=== PATIENT | female | born 1990 | race Caucasian/White ===

== ENCOUNTER 2018-04-16 00:58 | Outpatient (CLI) | payer MEDICAID ==
[2018-04-16 01:41] LABS: APPEARANCE,URINE SLIGHTLY-CLOUDY; BILIRUBIN,URINE NEGATIVE (NEGATIVE); COLOR,URINE YELLOW; GLUCOSE, URINE NEGATIVE (NEGATIVE); KETONES,URINE NEGATIVE (NEGATIVE); LEUKOCYTE ESTERASE,URINE LARGE (NEGATIVE); NITRITE,URINE NEGATIVE (NEGATIVE); PROTEIN,URINE NEGATIVE (NEGATIVE); URINE SPECIFIC GRAVITY 1.012; UROBILINOGEN,URINE NEGATIVE mg/dL (<2.0)
[2018-04-16 02:02] LABS: URINE AMPHETAMINES SCREEN NEGATIVE
[2018-04-16 02:07] LABS: URINE BARBITURATES SCREEN NEGATIVE; URINE COCAINE SCREEN NEGATIVE; URINE MARIJUANA (THC) SCREEN NEGATIVE; URINE METHADONE SCREEN NEGATIVE; URINE PHENCYCLIDINE SCREEN NEGATIVE
[2018-04-16 02:46] LABS: URINE BENZODIAZEPINES SCREEN UNCONFIRMED POSITIVE
== END 2018-04-16 02:58 | disposition home or self-care (01) ==
LOC: LC 00:58
PROVIDERS: ATTEND Obstetrics & Gynecology
PROC: 4A1HXCZ Monitoring of Products of Conception, Cardiac Rate, External Approach (ICD-10-PCS; principal; 2018-04-16)
DX: O47.1 False labor at or after 37 completed weeks of gestation (principal); O99.333 Smoking (tobacco) complicating pregnancy, third trimester; F17.210 Nicotine dependence, cigarettes, uncomplicated; Z3A.39 39 weeks gestation of pregnancy
CPT/HCPCS: 59025; 81005; 80307; G0480 ×2

== ENCOUNTER 2018-04-17 19:06 | Inpatient (IN) | payer MEDICAID ==
[2018-04-17 19:31] LABS: APPEARANCE,URINE CLOUDY; BILIRUBIN,URINE NEGATIVE (NEGATIVE); COLOR,URINE YELLOW; GLUCOSE, URINE NEGATIVE (NEGATIVE); KETONES,URINE 20 mg/dL (NEGATIVE); LEUKOCYTE ESTERASE,URINE MODERATE (NEGATIVE); NITRITE,URINE NEGATIVE (NEGATIVE); PROTEIN,URINE 30 mg/dL (NEGATIVE); URINE SPECIFIC GRAVITY 1.025
[2018-04-17 19:58] LABS: URINE AMPHETAMINES SCREEN NEGATIVE; URINE BARBITURATES SCREEN NEGATIVE; URINE BENZODIAZEPINES SCREEN NEGATIVE; URINE COCAINE SCREEN NEGATIVE; URINE MARIJUANA (THC) SCREEN NEGATIVE; URINE METHADONE SCREEN NEGATIVE; URINE PHENCYCLIDINE SCREEN NEGATIVE
[2018-04-17] MEDS ORDERED: RINGERS SOLUTION,LACTATED 1,000 ML IV ONE (19:58)
[2018-04-17] MEDS ORDERED: RINGERS SOLUTION,LACTATED 1,000 ML IV PRN (19:58)
[2018-04-17 20:23] LABS: ABSOLUTE BASOPHILS # (AUTO) 0.1 10^3/uL (0.0-0.2); ABSOLUTE LYMPHOCYTES (AUTO) 1.6 10^3/uL (0.5-4.7); ABSOLUTE MONOCYTES (AUTO) 0.4 10^3/uL (0.1-1.4); ABSOLUTE NEUT (AUTO) 6.6 10^3/uL (1.7-8.2); BASOPHILS % (AUTO) 1.2 % (0-2); EOSINOPHILS % (AUTO) 0.3 % (0-6); HEMATOCRIT 36.6 % (36.0-47.0); HEMOGLOBIN 12.6 g/dL (12.0-15.5); LYMPHOCYTES % (AUTO) 18.3 % (13-45); MEAN CORPUSCULAR HEMOGLOBIN 30.7 pg (27.0-33.4); MEAN CORPUSCULAR HGB CONC 34.5 g/dL (32.0-36.0); MEAN CORPUSCULAR VOLUME 89 fl (80-97); MONOCYTES % (AUTO) 4.6 % (3-13); PLATELET COUNT 174 10^3/uL (150-450); RED BLOOD COUNT 4.12 10^6/uL (3.72-5.28); RED CELL DISTRIBUTION WIDTH 14.2 % (11.5-14.0); SEGMENTED NEUTROPHILS % (AUTO) 75.6 % (42-78); TOTAL CELLS COUNTED % (AUTO) 100 %; WHITE BLOOD COUNT 8.8 10^3/uL (4.0-10.5)
[2018-04-17] MEDS ORDERED: EPHEDRINE SULFATE INJ 50 MG/1 ML AMPULE ONE (23:25)
[2018-04-17] MEDS ORDERED: FENTANYL CITRATE INJ/PF 100 MCG/2 ML AMPUL ONE (23:25)
[2018-04-17] MEDS ORDERED: FENTANYL/BUPIVACAINE/NS/PF 300 MCG/150 ML RTUINJ EPI ONE (23:26)
[2018-04-17] MEDS ORDERED: PHENYLEPHRINE HCL INJ/PF 10 MG/1 ML SDV ONE (23:26)
[2018-04-17] MEDS ORDERED: LIDOCAINE 1.5%/EPINEPHRINE INJ-PF 30 ML SDV ONE (23:26)
[2018-04-17] MEDS ORDERED: BUPIVACAINE HCL 0.25 % INJ/PF (2.5 MG/1 ML) 30 ML VIAL ONE (23:26)
--- NOTE | 2018-04-17 23:39 | Admission Physical ---
Datetime Report Generated by CPN: 04/17/2018 23:39 CURRENT ADMISSION Chief Complaint: Uterine Contractions Indication for Induction: Not Applicable Admit Impression : Term, Intrauterine ; Active Labor Admit Plan: Admit to Unit; Initiate Labor Protocol ALLERGIES Medication Allergies: No Medication Allergies: No Known Allergies (04/17/2018) Latex: No Latex Allergies Food Allergies: denies Environmental Allergies: denies OBSTETRICAL HISTORY EDC: 04/17/2018 00:00 : 1 Para: 0 Term: 0 : 0 SAB: 0 IAB: 0 Ectopic: 0 Livin Cesareans: 0 VBACs: 0 Multiple Births: 0 Gestational Diabetes: No Rh Sensitization: No Incompetent Cervix: No ОЛЬГА: No Infertility: No ART Treatment: No Uterine Anomaly: No IUGR: No Hx Previous C/S: No Macrosomia: No Hx Loss/Stillborn: No PIH: No Hx : No Placenta Previa/Abruption: No Depression/PP Depression: No PTL/PROM: No Post Hemorrhage: No Current Procedures: Ultrasound; NST Obstetrical History Comments: g1-current SEE RECORDS Alcohol: No Marijuana : No Previous Treatment: None Marijuana Comments: in past no longer using for several years Cocaine: Yes Previous Treatment: None Cocaine Comments: Recovering cocaine addiction-sober since 2016 Other Illicit Drugs: Yes Illicit Drug Comments: not currently using since 2016- heroin and opiates use via IV and benzos. patient was in medically induced coma for seizures possibly related to drug use Cigarettes: Current Everyday Smoker. 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 Heart Disease: No Hosp/Surgery: Yes Autoimmune Disorder: No Anesthetic Complications: No Kidney Disease: No Abnormal Pap Smear: No Neuro/Epilepsy: Yes Psychiatric Disorders: No Other Medical Diseases: Yes Hepatitis/Liver Disease: Yes Significant Family History: No Varicosities/Phlebitis: No Trauma/Violence : No Thyroid Dysfunction: No Medical History Comments: history of drug usage that led to medically induced coma because of seizures, opiate and heroin usage but has been sober since 2016, hepatitis c not currently on meds DO NOT TELL ANYONE PLEASE INFECTIOUS HISTORY Gonorrhea: No Genital Herpes: No Chlamydia: Yes Tuberculosis: No Syphilis: No Hepatitis: Yes HIV/AIDS Exposure: No Rash or Viral Illness: No HPV: No Infectious History Comments: hepatitis C not on meds, chlamydia in 2017 PHYSICAL EXAM General: Normal HEENT: Normal Neurologic: Normal Thyroid: Normal Heart: Normal Lungs: Normal Breast: Normal Back: Normal Abdomen: Normal Genitourinary Exam: Normal Extremities: Normal DTRs: Normal Pelvic Type: Adequate Vital Signs: Reviewed VAGINAL EXAM Dilatation: 3 Effacement: 90 Station: 0 MEMBRANES Pooling: Negative Membranes: Intact FETUS A EGA: 40.0 Monitoring: External US FHR- Baseline: 150 Variability: Moderate 6-25bpm Accelerations: 15X15 Decelerations: None FHR Category: Category I Estimated Weight (gm): 3500 Presentation: Vertex PLANS FOR LABOR AND DELIVERY Labor and Delivery: None Pain Management: Natural; Medications; Epidural Other Pain Management Plans: open to everything Feeding Preference: Both Benefit of Breast Feed Discussed: Yes Circumcision: Yes INFORMED CONSENT Signature: with User ID: [email or web address]
[2018-04-18] MEDS ORDERED: MISOPROSTOL 0.2 MG TABLET ONE (00:40)
[2018-04-18] MEDS ORDERED: LIDOCAINE 1% INJ-PF (10 MG/ML) 30 ML SDV ONE (00:40)
[2018-04-18] MEDS ORDERED: OXYTOCIN/NORMAL SALINE 20 UNIT/1,000 ML RTUINJ ONE (00:40)
[2018-04-18] MEDS ORDERED: DIPH/PERTUSS(ACELL)/TETANUS VAC/PF 0.5 ML SYR (>=10YO) IM PRN (03:48)
[2018-04-18] MEDS ORDERED: PROMETHAZINE HCL 25 MG SUPP.RECT PR PRN (03:48)
[2018-04-18] MEDS ORDERED: GLYCERIN/WITCH HAZEL LEAF 1 EACH MED..PAD TP PRN (03:48)
[2018-04-18] MEDS ORDERED: BENZOCAINE/MENTHOL AEROSOL SPRAY 56 ML TOP PRN (03:48)
[2018-04-18] MEDS ORDERED: ACETAMINOPHEN 650 MG SUPP.RECT PR PRN (03:48)
[2018-04-18] MEDS ORDERED: NA PHOS,M-B/NA PHOS,DI-BA (ADULT) 133 ML ENEMA PR PRN (03:48)
[2018-04-18] MEDS ORDERED: MAGNESIUM HYDROXIDE SUSP 30 ML UDCUP PO PRN (03:48)
[2018-04-18] MEDS ORDERED: DIBUCAINE 1% OINTMENT 28 GM TP PRN (03:48)
[2018-04-18] MEDS ORDERED: DIPHENHYDRAMINE HCL 25 MG CAPSULE PO PRN (03:48)
[2018-04-18] MEDS ORDERED: PROMETHAZINE HCL INJ 25 MG/1 ML VIAL IV PRN (03:48)
[2018-04-18] MEDS ORDERED: ACETAMINOPHEN WITH CODEINE #3 TABLET PO PRN ×2 (03:48)
[2018-04-18] MEDS ORDERED: OXYTOCIN/NORMAL SALINE 20 UNIT/1,000 ML RTUINJ IV PRN (03:48)
[2018-04-18] MEDS ORDERED: ZOLPIDEM TARTRATE 5 MG TABLET PO PRN (03:48)
[2018-04-18] MEDS ORDERED: PROMETHAZINE HCL 25 MG TABLET PO PRN (03:48)
[2018-04-18] MEDS ORDERED: PSEUDOEPHEDRINE HCL 30 MG TABLET PO PRN (03:48)
[2018-04-18] MEDS ORDERED: MEASLES,MUMPS&RUBELLA VACC/PF 0.5 ML VIAL SUBCUT PRN (03:48)
--- NOTE | 2018-04-18 05:52 | Delivery Summary ---
Del Sum A-C Datetime Report Generated by CPN: 04/18/2018 05:51 DELIVERY PERSONNEL DELIVERY PERSONNEL: [id number] Delivery Doctor:: Stephanie Valdivia MD Labor and Delivery Nurse:: Erin Auguste RNequal opportunity representative Nurse:: Bushra Brito RN Nursery Nurse:: Stephani Valenzuela RN Computer Network Engineer/PET AMBASSADOR: Michael Green, PET AMBASSADOR MATERNAL INFORMATION Delivery Anesthesia: Epidural Medications After Delivery: Pitocin Drip 20 Units/1000ml NSS Estimated Blood Loss (ml): 200 Maternal Complications: None Provider Comments: kiwi applied to 44 mmHg. one pull. no pop off LABOR SUMMARY EDC: 04/17/2018 00:00 No. Babies in Womb: 1 Attempted: No Labor Anesthesia: Epidural LABOR INFORMATION Reason for Induction: Not Applicable Onset of Labor: 04/17/2018 19:46 Complete Dilatation: 04/18/2018 02:49 Oxytocin: N/A Group B Beta Strep: Negative Antibiotics # of Doses: 0 Antibiotics Time of Last Dose: N/A Name of Antibiotic Given: N/A Steroids Given: None Reason Steroids Not Administered: Not Applicable MEMBRANES Membranes Rupture Method: Artificial Rupture of Membranes: 04/18/2018 02:49 Length of Rupture (hr): 0.72 Amniotic Fluid Color: Clear Amniotic Fluid Amount: Scant Amniotic Fluid Odor: Normal STAGES OF LABOR Stage 1 hr: 7 Stage 1 min: 3 Stage 2 hr: 0 Stage 2 min: 43 Stage 3 hr: 0 Stage 3 min: 4 Total Time in Labor hr: 7 Total Time in Labor min: 50 VAGINAL DELIVERY Episiotomy: None Laceration #1: Vaginal Laceration Extension #1: First Degree Laceration Repair: Yes Laceration Repair Note: 2-0 chromic in normal fashion Sponge Count Correct: N/A Sharps Count Correct: Yes CSECTION DELIVERY Primary Indication: N/A Secondary Indication: N/A CSection Incidence: N/A Labor: N/A Elective: N/A CSection Incision: N/A BABY A INFORMATION Delivery Date/Time: 04/18/2018 03:32 Method of Delivery: Vaginal Born in Route : No : N/A Forceps: N/A Vacuum Extraction: Successful Shoulder Dystocia : No ASSISTED DELIVERY BABY A Indication for Assisted Delivery: bradycardia Catheter Prior to Procedure: No Station Vacuum/Forcep Apply: +3 Vacuum Number of Pulls: 1 Vacuum Number of PopOffs: 0 Vacuum Maximum Pressure Obtained: 550 Reduce Pressure btwn Ctx: No Vacuum Triage Clinician: Kiwi Total Time Vacuum Applied: less than 1 minute PRESENTATION/POSITION BABY A Presentation: Cephalic Cephalic Presentation: Vertex Vertex Position: Left Occipital Anterior Breech Presentation: N/A PLACENTA INFORMATION BABY A Placenta Delivery Time : 04/18/2018 03:36 Placenta Method of Delivery: Spontaneous Placenta Status: Delivered SCORES BABY A Heart Rate 1 min: >100 bpm Resp Effort 1 min: Good Cry Reflex Irritability 1 min: Cough or Sneeze or Pulls Away Muscle Tone 1 min: Active Motion Color 1 min: Body [place], Extremities Blue Resuscitation Effort 1 min: Tactile Stimulation SCORE 1 MIN: 9 Heart Rate 5 min: >100 bpm Resp Effort 5 min: Good Cry Reflex Irritability 5 min: Cough or Sneeze or Pulls Away Muscle Tone 5 min: Active Motion Color 5 min: Body [place], Extremities Blue Resuscitation Effort 5 min: Tactile Stimulation SCORE 5 MIN: 9 INFORMATION BABY A Gestational Age at Delivery: 40.1 Gestational Status: Full Term- 39- 40.6 Weeks Outcome : Liveborn Infant Condition : Stable Sex: Male IDENTIFICATION BABY A Infant Verification Date/Time: 04/18/2018 03:44 ID Band Number: [id number] Mother's Name Verified: Yes Infant RN Verifying Infant: SErna Brito, RNC _ EErna Moorek, RN WEIGHT/LENGTH BABY A Birthweight (gm): 2980 Infant Weight (lb): 6 Weight (oz): 9 Length (in): 20.00 Infant Length (cm): 50.80 CORD INFORMATION BABY A No. Cord Vessels: 3 Nuchal Cord : N/A Nuchal Cord- Other: Left Compound hand Cord Blood Taken: Yes-For Storage (Mom's Blood type +) Infant Suction: None ASSESSMENT BABY A Infant Complications: None Physical Findings at Delivery: Molding of the Head Respirations: Appears Normal Skin to Skin: Yes Director Of Student Financial Services/ALS Called : No Transferred To: Remains with Mother BABY B INFORMATION : N/A SIGNATURES Signature: with User ID: [email or web address]
[2018-04-18] MEDS ORDERED: IBUPROFEN 800 MG TABLET ONE (08:00)
--- NOTE | 2018-04-18 08:28 | Warning Signs in Babies ---
VOD Warning Signs Datetime Report Generated by [facility]: 04/18/2018 08:28 VOD#608 -Warning Signs in Babies: Viewed with Parent(s)/Family (04/18/2018 08:05:MEL Davis)
[2018-04-18] MEDS: IBUPROFEN 800 MG TABLET PO SCH ×3 (09:10→21:35)
[2018-04-18] MEDS: FAMOTIDINE 20 MG TABLET PO SCH ×2 (09:19→21:36)
[2018-04-18] MEDS: PRENATAL VITAMIN W DHA CAPSULE PO SCH (09:19)
[2018-04-18] MEDS: SENNOSIDES/DOCUSATE 8.6-50 MG 1 EACH TABLET PO SCH (09:19)
[2018-04-18] MEDS: FERROUS SULFATE 325 MG TABLET PO SCH ×2 (09:19→17:59)
[2018-04-18] MEDS: DOCUSATE SODIUM 100 MG CAPSULE PO SCH ×2 (09:19→17:58)
[2018-04-19] MEDS: IBUPROFEN 800 MG TABLET PO SCH ×3 (05:31→22:20)
[2018-04-19 06:57] LABS: HEMATOCRIT 31.8 % (36.0-47.0); HEMOGLOBIN 11.1 g/dL (12.0-15.5); MEAN CORPUSCULAR HEMOGLOBIN 31.4 pg (27.0-33.4); MEAN CORPUSCULAR HGB CONC 34.8 g/dL (32.0-36.0); MEAN CORPUSCULAR VOLUME 90 fl (80-97); PLATELET COUNT 145 10^3/uL (150-450); RED BLOOD COUNT 3.53 10^6/uL (3.72-5.28); RED CELL DISTRIBUTION WIDTH 14.3 % (11.5-14.0)
[2018-04-19] MEDS: PRENATAL VITAMIN W DHA CAPSULE PO SCH (09:30)
[2018-04-19] MEDS: SENNOSIDES/DOCUSATE 8.6-50 MG 1 EACH TABLET PO SCH (09:31)
[2018-04-19] MEDS: DOCUSATE SODIUM 100 MG CAPSULE PO SCH ×2 (09:31→17:34)
[2018-04-19] MEDS: FERROUS SULFATE 325 MG TABLET PO SCH ×2 (09:31→17:34)
[2018-04-19] MEDS: FAMOTIDINE 20 MG TABLET PO SCH ×2 (09:31→22:20)
--- NOTE | 2018-04-19 09:47 | PDOC PROGRESS REPORT ---
Subjective-OB Progress Note for:: 04/19/18 Subjective: Pt doing well, reports light bleeding, regular diet and voiding without difficulty. No concerns today. Physical Exam (OB) Vital Signs: Temp Pulse Resp BP Pulse Ox 98.4 F 76 17 120/76 99 04/19/18 07:35 04/19/18 07:35 04/19/18 07:35 04/19/18 07:35 04/19/18 07:35 Intake & Output 04/18/18 04/19/18 04/20/18 06:59 06:59 06:59 Weight 89.4 kg - Abdomen Description: Soft Hernia Present: No Fundal Description: Firm Fundal Height: u/u - u/2 Objective-Diagnostic Laboratory: 04/19/18 06:33 04/19/18 06:33 WBC 7.0 RBC 3.53 L Hgb 11.1 L Hct 31.8 L MCV 90 MCH 31.4 MCHC 34.8 RDW 14.3 H Plt Count 145 L Assessment and Plan(PN) - Assessment and Plan (1) (spontaneous vaginal delivery) Is this a current diagnosis for this admission?: Yes - Time Spent with Patient Time with patient: Less than 15 minutes Medications reviewed and adjusted accordingly: Yes - Disposition Anticipated Discharge: Home Within: within 24 hours
[2018-04-20] MEDS: IBUPROFEN 800 MG TABLET PO SCH ×2 (06:14→13:29)
[2018-04-20] MEDS: PRENATAL VITAMIN W DHA CAPSULE PO SCH (11:16)
[2018-04-20] MEDS: FERROUS SULFATE 325 MG TABLET PO SCH (11:17)
[2018-04-20] MEDS: FAMOTIDINE 20 MG TABLET PO SCH (11:17)
[2018-04-20] MEDS: SENNOSIDES/DOCUSATE 8.6-50 MG 1 EACH TABLET PO SCH (11:17)
[2018-04-20] MEDS: DOCUSATE SODIUM 100 MG CAPSULE PO SCH (11:17)
--- NOTE | 2018-04-20 13:42 | PDOC PROGRESS REPORT ---
Subjective-OB Progress Note for:: 04/20/18 Subjective: Rubella Immune, A pos, 1st degree laceration, + Flatus, no BM, pain well controlled, Breast feed. poss desire IUD pp. lochia decreasing. desires to go home Physical Exam (OB) Vital Signs: Temp Pulse Resp BP Pulse Ox 97.9 F 65 18 127/81 H 97 04/20/18 07:50 04/20/18 07:50 04/20/18 07:50 04/20/18 07:50 04/20/18 07:50 - PIH/Pre-Eclampsia DTR's: 1 + Clonus: Negative Headache: Absent Epigastric Pain: No Visual Changes: No - Lochia Lochia Amount: Scant < 10 ml Lochia Color: Rubra/Red - Abdomen Description: Soft Hernia Present: No Bowel Sounds: Normoactive Flatus Presence: Present Stool: No Fundal Description: Firm, Midline Fundal Height: u/u - u/2 - HEENT Head: Normocephalic, Atraumatic - Respiratory Respiratory Status: No respiratory distress. negative: Respiratory distress Chest Status: Nontender Breath sounds: Clear. negative: Wheezing Chest Palpation: Normal - Cardiovascular Rhythm: Regular Heart Sounds: Normal auscultation, S1 appreciated, S2 appreciated - Abdominal Inspection: Normal Distension: No distension Tenderness: Nontender Organomegaly: No organomegaly - Extremities Upper extremity: Normal inspection Lower extremities: Nontender. negative: Atif's sign - Neurological Cognition: Normal - Psychological Associated symptoms: Normal affect, Normal mood - Skin Skin Temperature: Warm Skin Moisture: Dry Objective-Diagnostic Laboratory: 04/19/18 06:33 Assessment and Plan(PN) - Assessment and Plan (1) Vacuum extraction, delivered, current hospitalization Is this a current diagnosis for this admission?: Yes Plan: bradycardia during pushing requiring VAVD. (2) Obstetrical laceration, first degree Is this a current diagnosis for this admission?: Yes Plan: doing well, good pain control. F/u in office prn. Precuautions and pelvic rest (3) Hepatitis C Qualifiers: Viral hepatitis chronicity: unspecified Is this a current diagnosis for this admission?: Yes Plan: Will need GI f/u pp (4) Drug use affecting Is this a current diagnosis for this admission?: Yes Plan: Benzo pos on 04/16 but neg on confirmation. H/o Heroin use and opiates use in 2016 - - none since. space planner requested. Plan:: discharge to home - Time Spent with Patient Time with patient: Less than 15 minutes Medications reviewed and adjusted accordingly: Yes - Disposition Anticipated Discharge: Home Within: within 24 hours Disposition: Discharge to home
--- NOTE | 2018-04-20 13:44 | PDOC DISCHARGE SUMMARY ---
Final Diagnosis Discharge Date: 04/20/18 - Final Diagnosis (1) Vacuum extraction, delivered, current hospitalization Is this a current diagnosis for this admission?: Yes (2) Obstetrical laceration, first degree Is this a current diagnosis for this admission?: Yes (3) Hepatitis C Is this a current diagnosis for this admission?: Yes (4) Drug use affecting Is this a current diagnosis for this admission?: Yes Discharge Data - Discharge Medication Prescriptions: Benzocaine/Menthol [Dermoplast Aerosol Timewell 56 ml] 1 applic TOP PRN PRN 30 Days #1 can PRN Reason: Docusate Sodium [Colace 100 mg Capsule] 100 mg PO BID 30 Days #60 capsule Ferrous Sulfate [Feosol 325 mg Tablet] 325 mg PO BID 30 Days #60 tablet Ibuprofen [Motrin 800 mg Tablet] 800 mg PO Q8 30 Days #90 tablet Home Medications: Fluconazole [Diflucan] 150 mg PO ONCE PRN 04/17/18 Vit/Iron Fum/Folic AC [ Tablet] 1 each PO DAILY 04/17/18 Acetaminophen [Tylenol 650 mg Supp] 650 mg GA Q4HP PRN supp.rect 04/20/18 Benzocaine/Menthol [Dermoplast Aerosol Timewell 56 ml] 1 applic TOP PRN PRN 30 Days #1 can 04/20/18 Docusate Sodium [Colace 100 mg Capsule] 100 mg PO BID 30 Days #60 capsule Ferrous Sulfate [Feosol 325 mg Tablet] 325 mg PO BID 30 Days #60 tablet Glycerin/Witch [place] [Tucks Take-Alongs Pads 1 Each] 1 each TP DAILYP PRN med..pad 04/20/18 Ibuprofen [Motrin 800 mg Tablet] 800 mg PO Q8 30 Days #90 tablet 04/20/18 Vit/Dha [ Multi + Dha Capsule] 1 cap PO DAILY capsule Gestational Age: 40.1 Reason(s) for Admission: Onset of Labor Admission Note: admitted in active labor. See H&P Procedures: NST, Ultrasound Intrapartum Procedure(s): Vacuum Extraction Complication(s): Laceration-Vaginal Laceration-Degree: 1st - [place] Data Baby 1 Male at 1 minute: 9 at 5 minutes: 9 Weight: 2.977 kg Home with Mother: Yes Complications: Yes - Diagnosis Test Laboratory: Temp Pulse Resp BP Pulse Ox 97.9 F 65 18 127/81 H 97 04/20/18 07:50 04/20/18 07:50 04/20/18 07:50 04/20/18 07:50 04/20/18 07:50 04/17/18 04/17/18 04/19/18 19:13 20:13 06:33 RBC 4.12 3.53 L Hgb 12.6 11.1 L Hct 36.6 31.8 L Urine Opiates Screen NEGATIVE - Discharge information/Instructions Discharge Activity: Activity As Tolerated, Pelvic Rest Discharge Diet: As Tolerated Disposition: HOME, SELF-CARE Follow up with: [facility] in: 4, Weeks
[2018-04-20 13:51] VITALS: BP 106/64
== END 2018-04-20 14:50 | disposition home or self-care (01) | DRG 774 ==
LOC: LC 19:06 → LR 19:55 → 2S 04-18 08:56
PROVIDERS: ADMIT Obstetrics & Gynecology; ATTEND Obstetrics & Gynecology
PROC: 10D07Z6 Extraction of Products of Conception, Vacuum, Via Natural or Artificial Opening (ICD-10-PCS; principal; 2018-04-18)
PROC: 4A1HXCZ Monitoring of Products of Conception, Cardiac Rate, External Approach (ICD-10-PCS; 2018-04-18)
DX: O76 Abnormality in fetal heart rate and rhythm complicating labor and delivery (principal); O98.42 Viral hepatitis complicating childbirth; O32.6XX0 Maternal care for compound presentation, not applicable or unspecified; O70.0 First degree perineal laceration during delivery; B19.20 Unspecified viral hepatitis C without hepatic coma; O99.334 Smoking (tobacco) complicating childbirth; F17.210 Nicotine dependence, cigarettes, uncomplicated; Z3A.40 40 weeks gestation of pregnancy; Z86.19 Personal history of other infectious and parasitic diseases; Z37.0 Single live birth; Z86.59 Personal history of other mental and behavioral disorders
CPT/HCPCS: 36415; 80307; 81005; 85025; 85027; 86592; 86850; 86900; 86901; 94760; J2370; J2590; J3010; J3490

== ENCOUNTER 2020-07-14 19:32 | Emergency (ER) | payer MEDICAID ==
[2020-07-14 20:16] LABS: ABSOLUTE MONOCYTES (AUTO) 0.3 10^3/uL (0.1-1.4); ABSOLUTE NEUT (AUTO) 3.9 10^3/uL (1.7-8.2); TOTAL CELLS COUNTED % (AUTO) 100 %
--- NOTE | 2020-07-14 20:18 | ER Document Report ---
ED General - General Stated Complaint: SEIZURE HEADACHE Time Seen by Provider: 07/14/20 20:15 Primary Care Provider: CRISTY STEEN MD [Primary Care Provider] - Follow up as needed TRAVEL OUTSIDE OF THE [place] IN LAST 30 DAYS: No - HPI Notes: 30-year-old female presents following seizure. Patient states that she has a history of seizures, however is been about 2 to 3 years since her last seizure. She is no longer on any medications for seizure. She believes that she was on Keppra previously. She states that she had 2 seizures today. She had a seizure this morning around 10 AM, then had one this evening shortly prior to arrival. She states that she believes she has tonic-clonic seizures. She recently had 5 teeth pulled, have been pulled about 5 days ago, states that she has been taking hydrocodone every 8 hours. She had a headache that started after her teeth were pulled, and has become worse since the seizures. - Related Data Allergies/Adverse Reactions: No Known Allergies Allergy (Verified 04/17/18 19:58) Past Medical History - General Information source: Patient - Social History Smoking Status: Unknown if Ever Smoked Family History: Reviewed & Not Pertinent - Immunizations Immunizations up to date: No Hx Diphtheria, Pertussis, Tetanus Vaccination: No Review of Systems - Review of Systems Constitutional: denies: Fever EENT: Dental problem Cardiovascular: denies: Chest pain Respiratory: denies: Short of breath Gastrointestinal: denies: Abdominal pain Genitourinary: No symptoms reported Musculoskeletal: No symptoms reported Skin: No symptoms reported Neurological/Psychological: Seizure, Headaches Physical Exam - Vital signs Vitals: Resp Pulse Ox 13 100 07/14/20 19:41 07/14/20 19:41 - General General appearance: Appears well, Alert In distress: None - HEENT Head: Normocephalic, Atraumatic Eyes: Scleral icterus Extraocular movements intact: Yes Pupils: PERRL - Respiratory Breath sounds: Normal - Cardiovascular Rhythm: Regular - Abdominal Tenderness: Nontender - Extremities General upper extremity: Normal ROM General lower extremity: Normal ROM - Neurological Neuro grossly intact: Yes Cognition: Normal Orientation: AAOx4 Cranial nerves: Normal Motor strength normal: LUE, RUE, LLE, RLE Sensory: Normal - Psychological Associated symptoms: Normal affect - Skin Skin Temperature: Warm Course - Re-evaluation Re-evalutation: 30-year-old female here following 2 seizures today at home. She has a history of seizures, has not been on medication for 2 to 3 years, believes she was last on Keppra. She is neurologically intact, vital signs are stable, physical exam otherwise without major abnormality. Suspect that her seizures could be related to recent stressor from her teeth being pulled. Given that she reports headache, will obtain CT head to rule out intracranial process. Will give 1 g Keppra IV. Check basic labs. 07/15/20 02:42 CT head negative for bleed. Electrolytes within normal limits. CBC okay. 07/15/20 02:44 Patient updated on results. She continues to be well-appearing. She has tolerated p.o. Instructed to please have close follow-up with the primary care doctor as she will likely need referral to neurology. We will also provide neurology contact information discharge. Will start on Keppra 500 twice daily peer return precautions given, stable time of discharge. - Vital Signs Vital signs: Temp Pulse Resp BP Pulse Ox 98.6 F 17 97/62 L 99 07/14/20 21:41 07/15/20 02:17 07/15/20 02:17 07/15/20 02:17 - Laboratory Result Diagrams: 07/14/20 20:00 07/15/20 02:08 Laboratory results interpreted by me: 07/14/20 07/15/20 21:25 02:08 Chloride 109 H Urine Ketones TRACE H Urine Ascorbic Acid 40 H - Diagnostic Test Radiology reviewed: Image reviewed, Reports reviewed Discharge - Discharge Clinical Impression: Seizure Condition: Stable Disposition: HOME, SELF-CARE Additional Instructions: Please begin Keppra twice a day. Please have close follow-up your primary care doctor so that you may get referral to neurology. I have provided contact information for a neurology practice in [facility]. Return to the emergency department for any concerning worsening symptoms. Prescriptions: Levetiracetam [Keppra 500 mg Tablet] 500 mg PO BID 30 Days #60 tablet Referrals: CRISTY STEEN MD [Primary Care Provider] - Follow up as needed NEUROLOGY [Provider Group] - Follow up as needed ([facility] [address], [address] [place] [address] Email: )
[2020-07-14 20:22] LABS: ABSOLUTE LYMPHOCYTES (AUTO) 0.9 10^3/uL (0.5-4.7); BASOPHILS % (AUTO) 0.5 % (0-2); EOSINOPHILS % (AUTO) 0.4 % (0-6); HEMATOCRIT 39.2 % (36.0-47.0); HEMOGLOBIN 13.9 g/dL (12.0-15.5); LYMPHOCYTES % (AUTO) 17.6 % (13-45); MEAN CORPUSCULAR HEMOGLOBIN 32.9 pg (27.0-33.4); MEAN CORPUSCULAR HGB CONC 35.4 g/dL (32.0-36.0); MEAN CORPUSCULAR VOLUME 93 fl (80-97); MONOCYTES % (AUTO) 6.6 % (3-13); PLATELET COUNT 162 10^3/uL (150-450); RED BLOOD COUNT 4.22 10^6/uL (3.72-5.28); SEGMENTED NEUTROPHILS % (AUTO) 74.9 % (42-78); WHITE BLOOD COUNT 5.2 10^3/uL (4.0-10.5)
[2020-07-14] MEDS ORDERED: LEVETIRACETAM 1000 MG/NACL-ISO 1,000 MG/100 ML RTUPB IV ONE (20:24)
[2020-07-14] MEDS ORDERED: HYDROCODONE/ACETAMINOPHEN 5-325 MG TABLET PO ONE (20:24)
[2020-07-14] MEDS ORDERED: NORMAL SALINE 1000 ML 1,000 ML IV ONE (20:25)
--- NOTE | 2020-07-14 20:56 | RADIOLOGY REPORT (SQ) ---
EXAM DESCRIPTION: CT HEAD WITHOUT IV CONTRAST COMPLETED DATE/TME: 07/14/2020 20:24 CLINICAL HISTORY: 30 years, Female, headache, seizure EXAM DESCRIPTION: CLINICAL HISTORY: headache, seizure COMPARISON: None Available TECHNIQUE: Contiguous axial CT images of the head were obtained. Coronal and sagittal reconstructions were created from the axial data. This exam was performed according to our departmental dose-optimization program, which includes automated exposure control, adjustment of the mA and/or kV according to patient size and/or use of iterative reconstruction technique. FINDINGS: There is no evidence of acute mass, mass effect, midline shift or hemorrhage. The ventricles and extra-axial CSF spaces are unremarkable. The brain parenchyma appears normal for the patient's age. No acute abnormalities of the bones is seen. IMPRESSION: No acute intracranial abnormality.
[2020-07-14 22:01] LABS: AMORPHOUS SEDIMENT,URINE TRACE /HPF; APPEARANCE,URINE CLOUDY; BILIRUBIN,URINE NEGATIVE (NEGATIVE); COLOR,URINE YELLOW; GLUCOSE, URINE NEGATIVE (NEGATIVE); KETONES,URINE TRACE mg/dL (NEGATIVE); LEUKOCYTE ESTERASE,URINE NEGATIVE (NEGATIVE); NITRITE,URINE NEGATIVE (NEGATIVE); PROTEIN,URINE NEGATIVE (NEGATIVE); URINE SPECIFIC GRAVITY 1.021; UROBILINOGEN,URINE NEGATIVE mg/dL (<2.0)
[2020-07-15 02:34] LABS: ANION GAP 8 (5-19); BLOOD UREA NITROGEN 9 mg/dL (7-20); CALCIUM 8.5 mg/dL (8.4-10.2); CARBON DIOXIDE 22 mmol/L (22-30); CHLORIDE 109 mmol/L (98-107); GLUCOSE 98 mg/dL (75-110)
[2020-07-15 04:18] VITALS: BP 98/62
== END 2020-07-15 04:18 | disposition home or self-care (01) ==
LOC: ER 19:32
DX: R56.9 Unspecified convulsions (principal); R51 Headache
CPT/HCPCS: 99285; 96365; 36415; 82962; 84703; 85025; 80048; 81001; 70450; J7030; J1953